=== PATIENT | male | born 1955 | race Caucasian/White ===

== ENCOUNTER 2017-05-05 12:44 | Emergency (ER) | payer BC ==
--- NOTE | 2017-05-05 13:44 | UC ---
Lower Extremity/Ankle HPI - HPI Summary HPI Summary: 62M presents with left ankle pain today. [place] and twisted his ankle rolling it inside. He denies any numbness or tingling. He has been able to ambulate on the area. He denies any previous injury to the area. He was able to ambulate into the urgent care. - History of Current Complaint Chief Complaint: UCLowerExtremity Stated Complaint: ANKLE INJURY Time Seen by Provider: 05/05/17 13:21 - Allergies/Home Medications Allergies/Adverse Reactions: Allergies Allergy/AdvReac Type Severity Reaction Status Date / Time No Known Allergies Allergy Verified 05/05/17 13:16 Home Medications: Home Medications NK [No Home Medications Reported] 05/05/17 [History Confirmed 05/05/17] PMH/Surg Hx/FS Hx/Imm Hx Endocrine History: Other Other Endocrine History: no DM Cardiovascular History: Other Other Cardiovascular History: no CAD - Surgical History Surgical History: None - Family History Known Family History: Positive: Cardiac Disease - Social History Alcohol Use: Occasionally Substance Use Type: None Smoking Status (MU): Former Smoker Review of Systems Constitutional: Negative Musculoskeletal: Decreased ROM - left ankle All Other Systems Reviewed And Are Negative: Yes Physical Exam Triage Information Reviewed: Yes Appearance: Well-Appearing Vital Signs: Initial Vital Signs Temp 98.7 F 05/05/17 13:17 Pulse 75 05/05/17 13:17 Resp 16 05/05/17 13:17 Pulse Ox 100 05/05/17 13:17 Vital Signs Reviewed: Yes Eyes: Positive: Conjunctiva Clear Respiratory: Positive: Lungs clear, Normal breath sounds Cardiovascular: Positive: RRR Musculoskeletal: Positive: ROM Intact - left ankle, Edema @ - left lateral ankle , Other: - good pulses, capillary refill<2 secs, sensation grossly intact, tender over lateral aspect of ankle Neurological: Positive: Alert Psychological Exam: Normal Skin Exam: Normal Diagnostics - Radiology ankle Xray Interpretation: No Acute Changes Radiology Interpretation Completed By: Radiologist Lower Extremity Course/Dx - Course Course Of Treatment: 62M presents with left ankle pain today. He was walking on the golf field and twisted his ankle rolling it inside. He denies any numbness or tingling. He has been able to ambulate on the area. He denies any previous injury to the area. on exam swelling over lateral aspect of left ankle , neurovascular intact. xray normal. medication reviewed. patient understands and agrees with plan. - Differential Dx/Diagnosis Differential Diagnosis/HQI/PQRI: Fracture (Closed), Sprain, Strain Provider Diagnoses: left ankle injury Discharge - Discharge Plan Condition: Good Disposition: HOME Patient Education Materials: Ankle Sprain (ED) Referrals: Jana Hernandez MD [Primary Care Provider] - Additional Instructions: Take Tylenol or ibuprofen every 6 hours as needed for pain Apply ice, rest, elevate Follow up with primary care physician within 7 days if no improvement Return to ED if develop any new or worsening symptoms
--- NOTE | 2017-05-05 13:46 | RAD ---
HISTORY: Left ankle injury COMPARISONS: None VIEWS: 3, Frontal, lateral, and oblique views of the left ankle FINDINGS: BONE DENSITY: Normal. BONES: There is no acute displaced fracture. There is a well-corticated ossicle at the talonavicular articulation. JOINTS: There is no arthropathy. ALIGNMENT: There is no dislocation. SOFT TISSUES: There is circumferential soft tissue swelling OTHER FINDINGS: None. IMPRESSION: SOFT TISSUE SWELLING. NO ACUTE OSSEOUS INJURY. IF SYMPTOMS PERSIST, RECOMMEND REPEAT IMAGING.
== END 2017-05-05 14:15 | disposition home or self-care (01) ==
LOC: UCEAST 12:44
DX: S99.912A Unspecified injury of left ankle, initial encounter (principal); Z87.891 Personal history of nicotine dependence; X50.1XXA Overexertion from prolonged static or awkward postures, initial encounter; Y92.838 Other recreation area as the place of occurrence of the external cause
CPT/HCPCS: 99212; G0463